=== PATIENT | female | born 1985 | race Caucasian/White ===

== ENCOUNTER 2024-12-23 22:01 | Emergency (ER) | payer SELFPAY ==
[2024-12-23] MEDS ORDERED: NA CHLORIDE 0.9% 1,000 ML ONE (23:05)
[2024-12-23] MEDS ORDERED: ONDANSETRON 4 MG/2 ML VIAL ONE (23:05)
[2024-12-23 23:12] LABS: Absolute Lymphocytes (CBC) 3.4 K/uL (0.7-4.9); Hematocrit 37.4 % (36.0-45.0); Hemoglobin 12.4 g/dL (12.0-15.0); MCH 25.2 pg (27.0-35.0); MCHC 33.1 g/dL (32.0-36.0); MCV 76.1 fL (80-100); MPV 8.1 fL (7.6-11.3); Nucleated RBC Absolute Count 0.0 (0-0); Nucleated Red Blood Cells % 0.0 % (0-0); RBC Red Blood Cell Count 4.91 M/uL (3.86-4.86); White Blood Count 10.60 thou/uL (4.3-10.9)
[2024-12-23 23:30] LABS: ALT/SGPT 72.0 U/L (13-56); AST/SGOT 29.0 U/L (15-37); Albumin 3.2 g/dL (3.4-5.0); Albumin/Globulin Ratio 0.9 (1.1-1.8); Alkaline Phosphatase 86.0 U/L (45-117); Anion Gap 9.6 mEq/L (5.0-15.0); BUN Blood Urea Nitrogen 11.0 mg/dL (7-18); Globulin 3.7 g/dL (2.3-3.5); Glucose Level 96.0 mg/dL (74-106); Lipase 34.0 U/L (13-75); Potassium 3.6 mEq/L (3.5-5.1)
[2024-12-23] MEDS ORDERED: PANTOPRAZOLE 40 MG INJ ONE (23:44)
[2024-12-23] MEDS ORDERED: DICYCLOMINE HCL 20 MG/2 ML AMP IM ONE (23:44)
--- NOTE | 2024-12-24 01:37 | RAD REPORT ---
EXAM DESCRIPTION: Abdomen Pelvis W Contrast RadLex: CT ABDOMEN PELVIS WITH IV CONTRAST CLINICAL HISTORY: 39 years Female; ABD PAIN; IV ONLY Bed Name: 20 TECHNIQUE: CT of the abdomen and pelvis [with] intravenous contrast. All CT scans at this facility use dose modulation, iterative reconstruction, and/or weight based dosi ng when appropriate to reduce radiation dose to as low as reasonably achievable. COMPARISON: None. FINDINGS: Lower thorax: Lung bases are clear Abdomen: Stomach: Within normal limits Liver: No focal lesions. No intrahepatic ductal distention. Gallbladder: Nondistended Pancreas: Within normal limits Spleen: Within normal limits Right kidney: No hydronephrosis. No focal lesion. Left kidney: No hydronephrosis. No focal lesion. Adrenal glands: Within normal limits Vascular structures: Within normal limits Nodes: No lymphadenopathy by size criteria Pelvis: Small bowel: No significant distention. Appendix: Within normal limits Colon: No distention or acute pericolonic edema. Peritoneum: No free intraperitoneal fluid or air. Bones: No acute bone findings. Bladder: Unremarkable. Reproductive organs: No acute findings. Probable corpus luteal cyst in left ovary measuring 2.2 cm. IMPRESSION: No acute abdominopelvic findings. Electronically signed by: Kulwinder Judd MD 12/24/2024 01:32 AM CDT TYG Due to temporary technical issues with the PACS/[employer] reporting system, reports are being stephanie d by the in-house radiologist without review as a courtesy to ensure prompt reporting the interpreting radiologist is fully responsible for the content of the report. Transcribed Date/Time: 12/24/2024 1:36 AM
--- NOTE | 2024-12-24 01:48 | ER ---
Nurse's Notes [facility] Name: Farnaz Smith Age: 39 yrs Sex: Female : 1985 Arrival Date: 12/23/2024 Time: 22:01 Bed 20 Private MD: Diagnosis: Upper abdominal pain, unspecified;Nausea;Diarrhea, unspecified Presentation: 12/23 22:34 Chief complaint: Patient states: c/o stomach pain for the last 2 days, black stool zm yesterday and some blood in stool today. Coronavirus screen: Vaccine status: Patient reports receiving the 2nd dose of the covid vaccine. Patient reports receiving the 1st dose of the Covid vaccine. Client denies travel out of the [place] in the last 14 days. At this time, the client does not indicate any symptoms associated with coronavirus-19. Ebola Screen: No symptoms or risks identified at this time. Initial Sepsis Screen:. Initial Sepsis Screen: Does the patient meet any 2 criteria? No. Patient's initial sepsis screen is negative. Does the patient have a suspected source of infection? No. Patient's initial sepsis screen is negative. Risk Assessment: Do you want to hurt yourself or someone else? Patient reports no desire to harm self or others. Onset of symptoms was December 21, 2024. 22:34 Method Of Arrival: Ambulatory zm 22:34 Acuity: ALTAGRACIA 3 zm Triage Assessment: 22:39 General: Appears in no apparent distress. Behavior is calm, cooperative. Pain: zm Complains of pain in umbilical area Pain currently is 10 out of 10 on a pain scale. Quality of pain is described as sharp, Pain began 2-3 days ago. Is intermittent. Neuro: No deficits noted. Level of Consciousness is awake, alert, obeys commands, Oriented to person, place, time, situation. Cardiovascular: Chest pain is denied. Cardiovascular: No deficits noted. Capillary refill < 3 seconds in bilateral fingers Patient's skin is warm and dry. Respiratory:. Respiratory: No deficits noted. Airway is patent Respiratory effort is even, unlabored, Respiratory pattern is regular, symmetrical. GI: Abdomen is non-distended, obese, Last BM was December 23, 2024. Bowel sounds present X 4 quads. Abd is soft and non tender X 4 quads. Reports upper abdominal pain, rectal bleeding, bloody stool, Patient currently denies nausea, vomiting. : No deficits noted. Derm: No deficits noted. Musculoskeletal: No deficits noted. 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 - Infectious Disease History:: Denies. - Social history:: Smoking status: Patient denies any tobacco usage or history of. Screenin:16 [facility] ED Fall Risk Assessment (Adult) History of falling in the last 3 months, zm including since admission No falls in past 3 months (0 pts) Confusion or Disorientation No (0 pts) Intoxicated or Sedated No (0 pts) Impaired Gait No (0 pts) Mobility Assist Device Used No (0 pt) Altered Elimination No (0 pt) Score/Fall Risk Level 0 - 2 = Low Risk Oriented to surroundings, Maintained a safe environment, Educated pt \T\ family on fall prevention, incl call for assistance when getting out of bed, Assessed \T\ reinforced patient's understanding of fall precautions, Hourly rounding (assess needs \T\ fall precautionary measures) done, Used ambulatory aids as needed (educated on \T\ assisted with), Used gait belt as appropriate. Abuse screen: Denies threats or abuse. Nutritional screening: No deficits noted. Tuberculosis screening: No symptoms or risk factors identified. Assessment: 23:14 Reassessment: Patient appears in no apparent distress at this time. No changes from zm previously documented assessment. Patient and/or family updated on plan of care and expected duration. Pain level reassessed. Patient is alert, oriented x 3, equal unlabored respirations, skin warm/dry/pink. Patient states symptoms have not improved. GI: Reports nausea. 12/24 00:04 Reassessment: Patient appears in no apparent distress at this time. Patient and/or family updated on plan of care and expected duration. Pain level reassessed. Patient is alert, oriented x 3, equal unlabored respirations, skin warm/dry/pink. Patient states symptoms have improved. Pain: Pain currently is 8 out of 10 on a pain scale. 01:09 Reassessment: Patient appears in no apparent distress at this time. Patient and/or zm family updated on plan of care and expected duration. Pain level reassessed. Patient is alert, oriented x 3, equal unlabored respirations, skin warm/dry/pink. Patient states feeling better. Pain: Pain currently is 5 out of 10 on a pain scale. 01:52 Reassessment: Patient appears in no apparent distress at this time. Patient and/or bm8 family updated on plan of care and expected duration. Pain level reassessed. Patient is alert, oriented x 3, equal unlabored respirations, skin warm/dry/pink. Patient states feeling better. Patient states symptoms have improved. Vital Signs: 12/23 22:34 BP 131 / 93; Pulse 94; Resp 18; Temp 98.4; Pulse Ox 100% on R/A; Weight 130.18 kg; zm Height 5 ft. 8 in. ; Pain 10/10; 23:16 BP 114 / 66; Pulse 86; Resp 16; Pulse Ox 100% on R/A; Pain 10/10; zm 12/24 00:05 BP 116 / 71; Pulse 88; Resp 16; Temp 98.2; Pulse Ox 100% on R/A; Pain 8/10; zm 01:09 BP 118 / 72; Pulse 85; Resp 16; Temp 98.5; Pulse Ox 100% on R/A; Pain 5/10; zm 01:52 BP 119 / 57; Pulse 83; Resp 17; Temp 98.5; Pulse Ox 100% ; Pain 3/10; bm8 12/23 22:34 Body Mass Index 43.64 (130.18 kg, 172.72 cm) zm 12/23 22:34 Pain Scale: Adult zm 23:16 Pain Scale: Adult zm 12/24 00:05 Pain Scale: Adult zm 01:09 Pain Scale: Adult zm 01:52 Pain Scale: Adult bm8 Trudi Coma Score: 12/23 23:16 Eye Response: spontaneous(4). Motor Response: obeys commands(6). Verbal Response: zm oriented(5). Total: 15. 12/24 01:09 Eye Response: spontaneous(4). Motor Response: obeys commands(6). Verbal Response: zm oriented(5). Total: 15. 01:52 Eye Response: spontaneous(4). Motor Response: obeys commands(6). Verbal Response: bm8 oriented(5). Total: 15. ED Course: 12/23 22:02 Patient arrived in ED. [email or web address] 22:06 Jossue Hair PA is PHCP. cp 22:06 Kyle Hollis DO is Attending Physician. cp 22:39 Triage completed. zm 22:39 Arm band placed on right wrist. zm 22:54 Sebastian Ram, RN is Primary Nurse. bm8 23:12 Initial lab(s) drawn, by me, sent to lab. Inserted saline lock: 20 gauge in right zm wrist, using aseptic technique. Blood collected. Flushed with 10 mL NS. 23:12 Ptt, Activated Sent. zm 23:12 PT-INR Sent. zm 23:12 CBC with Diff Sent. zm 23:12 CMP Sent. zm 23:12 Lipase Sent. zm 23:16 Patient has correct armband on for positive identification. Placed in gown. Bed in low zm position. Call light in reach. Side rails up X2. Adult w/ patient. Client placed on continuous cardiac and pulse oximetry monitoring. NIBP monitoring applied. Pulse ox on. NIBP on. Door closed. Noise minimized. Warm blanket given. Verbal reassurance given. 23:19 Patient maintains SpO2 saturation greater than 95% on room air. zm 23:49 CT Abd/Pelvis - IV Contrast Only In Process Unspecified. EDMS 12/24 01:19 No provider procedures requiring assistance completed. bm8 01:47 Curry Zapata MD is Referral Physician. cp 01:52 Provided Education on: post er care. bm8 01:52 IV discontinued, intact, bleeding controlled, No redness/swelling at site. Pressure bm8 dressing applied. Administered Medications: 12/23 23:13 Drug: Ondansetron IVP 4 mg IVP once; over 2 minutes Route: IVP; Site: right wrist; 12/24 00:03 Follow up: Response: No adverse reaction 12/23 23:13 Drug: NS 0.9% IV 1000 ml IV at 1 bolus Per protocol; to be given as a bolus over 60 zm minutes Route: IV; Rate: 1 bolus; Site: right wrist; 12/24 01:13 Follow up: Response: No adverse reaction; IV Status: Completed infusion 00:03 Drug: Dicyclomine IM 20 mg IM once Route: IM; Site: right deltoid; zm 01:13 Follow up: Response: No adverse reaction zm 00:03 Drug: Pantoprazole IVP 40 mg IVP once Route: IVP; Site: right wrist; zm 01:13 Follow up: Response: No adverse reaction zm Medication: 12/23 23:16 VIS not applicable for this client. zm Outcome: 12/24 01:48 Discharge ordered by . madelin 01:52 Discharged to home ambulatory, with family, bm8 01:52 Condition: stable 01:52 Discharge instructions given to patient, family, Instructed on discharge instructions, follow up and referral plans. no drinking with medication, no driving heavy equipment, medication usage, safety practices, Demonstrated understanding of instructions, follow-up care, medications, Prescriptions given X 2, 01:54 Patient left the ED. bm8 Signatures: Dispatcher [employer] EDMS Jossue Hair PA PA cp Jeffries, Jennifer [email or web address] Barbara Madrigal RN RN Sebastian Ram RN RN bm8 Corrections: (The following items were deleted from the chart) 01:53 01:52 Discharge instructions given to patient, family, Instructed on discharge bm8 instructions, follow up and referral plans. no drinking with medication, no driving heavy equipment, medication usage, safety practices, Demonstrated understanding of instructions, follow-up care, medications, Prescriptions given X bm8
--- NOTE | 2024-12-24 01:49 | EDPHYS ---
Physician Documentation [facility] Name: Farnaz Smith Age: 39 yrs Sex: Female : 1985 Arrival Date: 12/23/2024 Time: 22:01 Bed 20 Private MD: ED Physician Kyle Hollis HPI: 12/23 22:55 This 39 yrs old Female presents to ER via Ambulatory with complaints of Abdominal Pain, cp Black/Tarry Stools, Rectal Bleeding, Doesn't Feel Right. 22:55 The patient presents with abdominal pain that is diffuse. Onset: The symptoms/episode cp began/occurred 2 day(s) ago. Associated signs and symptoms: Pertinent positives: anorexia, diarrhea, nausea, with stool appearing black colored, Pertinent negatives: constipation, fever, vomiting. The symptoms are described as crampy, waxing/waning. Severity of pain: in the emergency department the pain is unchanged despite home interventions. Patient admits to taking OTC Pepto Bismal for upset stomach. 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 - Infectious Disease History:: Denies. - Social history:: Smoking status: Patient denies any tobacco usage or history of. ROS: 23:00 Constitutional: Negative for body aches, chills, fever, poor PO intake, cp 23:00 Eyes: Negative for injury, pain, redness, and discharge, cp 23:00 ENT: Negative for drainage from ear(s), ear pain, sore throat, difficulty swallowing, difficulty handling secretions, 23:00 Cardiovascular: Negative for chest pain, 23:00 Respiratory: Negative for cough, shortness of breath, wheezing, 23:00 Abdomen/GI: Positive for abdominal pain, nausea, diarrhea, reported blood colored stools, Negative for vomiting, 23:00 Skin: Negative for rash, 23:00 Neuro: Negative for dizziness, headache, weakness, 23:00 All other systems are negative, Exam: 23:05 Constitutional: The patient appears in no acute distress, alert, awake, cp non-diaphoretic, non-toxic, well developed, well nourished, 23:05 Head/Face: Normocephalic, atraumatic. cp 23:05 Eyes: Periorbital structures: appear normal, Conjunctiva: normal, no exudate, no injection, Sclera: no appreciated abnormality, Lids and lashes: appear normal, bilaterally, 23:05 ENT: External ear(s): are unremarkable, Nose: is normal, Mouth: Lips: moist, Oral mucosa: moist, Posterior pharynx: Airway: no evidence of obstruction, patent, erythema, is not appreciated, exudate, is not appreciated, 23:05 Chest/axilla: Inspection: normal, 23:05 Cardiovascular: Rate: normal, Rhythm: regular, 23:05 Respiratory: the patient does not display signs of respiratory distress, Respirations: normal, no use of accessory muscles, no retractions, labored breathing, is not present, Breath sounds: are clear throughout, no decreased breath sounds, no stridor, no wheezing, 23:05 Abdomen/GI: Inspection: obese Bowel sounds: active, all quadrants, Palpation: soft, in all quadrants, mild abdominal tenderness, in the epigastric area, right upper quadrant and left upper quadrant, rebound tenderness, is not appreciated, involuntary guarding, is not appreciated, 23:05 Back: CVA tenderness, is absent, Vital Signs: 22:34 BP 131 / 93; Pulse 94; Resp 18; Temp 98.4; Pulse Ox 100% on R/A; Weight 130.18 kg; zm Height 5 ft. 8 in. ; Pain 10/10; 23:16 BP 114 / 66; Pulse 86; Resp 16; Pulse Ox 100% on R/A; Pain 10/10; zm 12/24 00:05 BP 116 / 71; Pulse 88; Resp 16; Temp 98.2; Pulse Ox 100% on R/A; Pain 8/10; zm 01:09 BP 118 / 72; Pulse 85; Resp 16; Temp 98.5; Pulse Ox 100% on R/A; Pain 5/10; zm 01:52 BP 119 / 57; Pulse 83; Resp 17; Temp 98.5; Pulse Ox 100% ; Pain 3/10; bm8 12/23 22:34 Body Mass Index 43.64 (130.18 kg, 172.72 cm) zm 0815 22:34 Pain Scale: Adult zm 23:16 Pain Scale: Adult zm 12/24 00:05 Pain Scale: Adult zm 01:09 Pain Scale: Adult zm 01:52 Pain Scale: Adult bm8 Trudi Coma Score: 12/23 23:16 Eye Response: spontaneous(4). Motor Response: obeys commands(6). Verbal Response: zm oriented(5). Total: 15. 12/24 01:09 Eye Response: spontaneous(4). Motor Response: obeys commands(6). Verbal Response: zm oriented(5). Total: 15. 01:52 Eye Response: spontaneous(4). Motor Response: obeys commands(6). Verbal Response: bm8 oriented(5). Total: 15. MDM: 12/23 22:21 Medical Screening Exam initiated 12/24 00:00 Differential diagnosis: gastritis, GI Bleed, pancreatitis, Peptic Ulcer Disease, Perf. cp Duodenal Ulcer, Perf. Gastric Ulcer. 01:45 Data reviewed: vital signs, nurses notes, lab test result(s), radiologic studies, CT cp scan, and as a result, I will discharge patient. 01:47 I considered the following discharge prescriptions or medication management in the emergency department Medications were administered in the Emergency Department. See MAR. 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 01:47 Special discussion: Based on the patient's Hx, exam, and Dx evaluation, there is no cp indication for emergent surgery or inpatient Tx. It is understood by the patient/guardian that if the Sx's persist or worsen they need to return immediately for re-evaluation. 12/23 22:49 Order name: CBC with Diff; Complete Time: 23:27 12/23 23:28 Interpretation: Normal except: RBC 4.91; MCV 76.1; MCH 25.2; RDW 15.6. 12/23 22:49 Order name: CMP; Complete Time: 01:39 12/24 01:39 Interpretation: Normal except: CL 109; GFR 84; ALT 72; ALB 3.2; GLOB 3.7; A/G 0.9. 12/23 22:49 Order name: Lipase; Complete Time: 01:39 cp 12/23 22:49 Order name: CT Abd/Pelvis - IV Contrast Only; Complete Time: 01:39 12/24 01:40 Interpretation: Report reviewed. 12/23 22:49 Order name: IV Saline Lock; Complete Time: 23:12 12/23 22:49 Order name: Labs collected and sent; Complete Time: 23:12 cp Administered Medications: 12/23 23:13 Drug: Ondansetron IVP 4 mg IVP once; over 2 minutes Route: IVP; Site: right wrist; 12/24 00:03 Follow up: Response: No adverse reaction 12/23 23:13 Drug: NS 0.9% IV 1000 ml IV at 1 bolus Per protocol; to be given as a bolus over 60 zm minutes Route: IV; Rate: 1 bolus; Site: right wrist; 12/24 01:13 Follow up: Response: No adverse reaction; IV Status: Completed infusion 00:03 Drug: Dicyclomine IM 20 mg IM once Route: IM; Site: right deltoid; zm 01:13 Follow up: Response: No adverse reaction 00:03 Drug: Pantoprazole IVP 40 mg IVP once Route: IVP; Site: right wrist; zm 01:13 Follow up: Response: No adverse reaction Disposition: 02:16 I was immediately available on-site in the Emergency Department for consultation in the ms3 care of the patient. Disposition Summary: 12/24/24 01:48 Discharge Ordered Notes: Location: Home cp Problem: new cp Symptoms: have improved cp Condition: Stable cp Diagnosis - Upper abdominal pain, unspecified cp - Nausea cp - Diarrhea, unspecified cp Followup: cp - With: Curry Zapata MD - When: 1 week - Reason: symptoms continue Discharge Instructions: - Discharge Summary Sheet cp - Abdominal Pain, Adult cp - Food Choices to Help Relieve Diarrhea, Adult cp - Diarrhea, Adult cp - Gastroesophageal Reflux Disease, Adult cp Forms: - Medication Reconciliation Form cp - Antibiotic Education cp - Prescription Opioid Use cp - Patient Portal Instructions cp - Leadership Thank You Letter cp Prescriptions: - Protonix 40 mg Oral Tablet - take 1 tablet ORAL route once daily; 30 tablet; Refills: 0, Product Selection cp Permitted - Zofran 4 mg Oral Tablet - take 1 tablet ORAL route every 12 hours As needed; 20 tablet; Refills: 0, cp Product Selection Permitted Signatures: Dispatcher [employer] EDMS Jossue Hair PA PA cp Sims, Marcus, DO DO ms3 Barbara Madrigal, RN RN zm Corrections: (The following items were deleted from the chart) 12/23 22:50 22:50 CBC+H.LAB.BRZ ordered. EDMS EDMS 22:50 22:50 COMPREHENSIVE METABOLIC PANEL+C.LAB.BRZ ordered. EDMS EDMS 22:50 22:50 LIPASE+C.LAB.BRZ ordered. EDMS EDMS 22:50 22:50 PROTIME (+INR)+COAG.LAB.BRZ ordered. EDMS EDMS 22:50 22:50 PTT, ACTIVATED+COAG.LAB.BRZ ordered. EDMS EDMS 22:50 22:50 Fecal Leukocyte Stain+BA.LAB.BRZ ordered. EDMS EDMS 22:50 22:50 Ova and Parasites+MR.LAB.BRZ ordered. EDMS EDMS 22:50 22:50 Rotavirus Antigen+BA.LAB.BRZ ordered. EDMS EDMS 22:50 22:50 Stool Culture+BA.LAB.BRZ ordered. EDMS EDMS 22:50 22:50 C.difficile GDH Ag \T\ Toxin AB+LAB.BRZ ordered. EDMS EDMS
[2024-12-24 07:44] VITALS: O2SAT 100
[2024-12-24 08:18] VITALS: TEMP 98.5
[2024-12-24 08:19] VITALS: BP 119/57
== END 2024-12-24 01:54 | disposition home or self-care (01) ==
LOC: ER 22:01
DX: R10.13 Epigastric pain (principal); R11.0 Nausea; R19.7 Diarrhea, unspecified
CPT/HCPCS: 36415; 74177; 80053; 83690; 85025; 85610; 85730; 96361; 96372; 96374; 96375; 99284; J0500; J2405; J2470; J7030; Q9967